=== PATIENT | female | born 1990 | race Caucasian/White ===

== ENCOUNTER → 2017-12-17 | Outpatient (CLI) | payer OTHER | LOC: FIMAGING 09:29 | PROVIDERS: ATTEND Student in an Organized Health Care Education/Training Program | DX: O24.012 Pre-existing type 1 diabetes mellitus, in pregnancy, second trimester (principal); O36.62X0 Maternal care for excessive fetal growth, second trimester, not applicable or unspecified; O99.282 Endocrine, nutritional and metabolic diseases complicating pregnancy, second trimester; O99.212 Obesity complicating pregnancy, second trimester; E03.9 Hypothyroidism, unspecified; Z3A.19 19 weeks gestation of pregnancy ==

== ENCOUNTER → 2018-01-31 | Outpatient (CLI) | payer OTHER | LOC: FIMAGING 14:24 | PROVIDERS: ATTEND Student in an Organized Health Care Education/Training Program | DX: O24.012 Pre-existing type 1 diabetes mellitus, in pregnancy, second trimester (principal); O99.212 Obesity complicating pregnancy, second trimester; O36.62X0 Maternal care for excessive fetal growth, second trimester, not applicable or unspecified; Z3A.26 26 weeks gestation of pregnancy; Z98.891 History of uterine scar from previous surgery ==

== ENCOUNTER → 2018-02-07 | Outpatient (CLI) | payer OTHER | LOC: FIMAGING 13:31 | PROVIDERS: ATTEND Student in an Organized Health Care Education/Training Program | DX: O24.012 Pre-existing type 1 diabetes mellitus, in pregnancy, second trimester (principal); Z3A.27 27 weeks gestation of pregnancy ==

== ENCOUNTER → 2018-02-28 | Outpatient (CLI) | payer OTHER | LOC: FIMAGING 09:53 | PROVIDERS: ATTEND Student in an Organized Health Care Education/Training Program | DX: O24.013 Pre-existing type 1 diabetes mellitus, in pregnancy, third trimester (principal); Z3A.30 30 weeks gestation of pregnancy ==

== ENCOUNTER → 2018-04-01 | Outpatient (CLI) | payer OTHER | LOC: FIMAGING 08:23 | PROVIDERS: ATTEND Student in an Organized Health Care Education/Training Program | DX: O24.013 Pre-existing type 1 diabetes mellitus, in pregnancy, third trimester (principal); O09.293 Supervision of pregnancy with other poor reproductive or obstetric history, third trimester; Z3A.34 34 weeks gestation of pregnancy ==